=== PATIENT | female | born 1990 | race Hispanic/Latino ===

== ENCOUNTER 2019-10-14 20:28 | Emergency (ER) | payer OTHER ==
[~2019-10-14] VITALS: Ht 157.5 cm; Wt 98.4 kg
[2019-10-14] MEDS ORDERED: CLONIDINE HCL 0.1 MG TAB PO ONE (21:00)
--- NOTE | 2019-10-14 22:29 | Diagnostic Imaging Report ---
EXAMINATION: CXR 2 VIEW - HOPD INDICATION: Left chest pain, fever COMPARISON: None FINDINGS: TUBES and LINES: None. LUNGS: Lungs are well inflated. Lungs are clear. There is no evidence of pneumonia or pulmonary edema. PLEURA: No pleural effusion or pneumothorax. HEART AND MEDIASTINUM: The cardiomediastinal silhouette is unremarkable. BONES AND SOFT TISSUES: No acute osseous lesion. Soft tissues are unremarkable. UPPER ABDOMEN: No free air under the diaphragm. IMPRESSION: No acute thoracic radiographic abnormality. Signed by: Tristan Recio DO on 10/14/2019 10:26 PM
--- OUTSIDE RECORDS SUMMARY | 2019-10-21 11:55 | XMS REPORT ---
Author [facility] Address Unknown Phone Unavailable Care Team Providers Care Equipment Technician Name Role Phone Jarvis BARNES Unavailable Unavailable Payers Payer Name Policy Type Policy Number Effective Date Expiration Date Problems This patient has no known problems. Allergies, Adverse Reactions, Alerts Allergy Name Allergy Type Status Severity Reaction(s) Onset Date Inactive Date Treating Clinician Comments No Known Allergies DA Active U 2019-03-27 00:00:00 No Known Allergies DA Active U 2016-10-11 00:00:00 Medications This patient has no known medications. Results Test Description Test Time Test Comments Text Results Atomic Results Result Comments CXR 2 VIEW - [facility] 2019-10-14 22:25:00 [place] [address] Patient Name: TIFF GUNTER MR #: [id number] : 1990 Age/Sex: 29/F Req #: [id number] Adm Physician: Ordered by: ABEBA BARNES MD Report #: [id number] Location: [facility] Room/Bed: Procedure: [id number] HOPD/CXR 2 VIEW - HOPD Exam Date: 10/14/19 Exam Time: 2125 REPORT STATUS: Signed EXAMINATION: CXR 2 VIEW - HOPD INDICATION: Left chest pain, fever COMPARISON: None FINDINGS: TUBES and LINES: None. LUNGS: Lungs are well inflated. Lungs are clear. There is no evidence of pneumonia or pulmonary edema. PLEURA: No pleural effusion or pneumothorax. HEART AND MEDIASTINUM: The cardiomediastinal silhouette is unremarkable. BONES AND SOFT TISSUES: No acute osseous lesion. So ft tissues are unremarkable. UPPER ABDOMEN: No free air under the diaphragm. IMPRESSION: No acute thoracic radiographic abnormality. Signed by: Tristan Recio DO on 10/14/2019 10:26 PM Dictated By: TRISTAN RECIO DO 25 Transcribed By: ELIJAH on 10/14/192225 COPY TO: ABEBA BARNES MD - US TRANSVAGINAL NON OB 2019-03-28 01:20:00 Name: TIFF GUNTER [facility] : 1990 Age/S: 28 / F [address] [place] [address] Blvd Unit #: [id number] Loc: [place] [address] Phys: Vasyl Villalba MD Acct: [id number] Dis Date: Status: REG ER PHONE #: [phone] Exam Date: 03/27/20198 FAX #: [phone] Reason: PCOS, INCREASED PAIN EXAMS: CPT CODE: [id number] [place] [id number] EXAM: US, US PELVIS COMPLETE: 03/28/2019, 0027 hours EXAM: US, US TRANSVAGINAL: 03/28/2019, 0027 hours History: Pelvic pain and discomfort. Comparison none Technique: Sonographic evaluation is performed of the pelvis via transabdominal and transvaginal approach using grayscale, color flow and Doppler imaging as appropriate FINDINGS: Transabdominal pelvic ultrasound: Uterus is anteverted. Uterus measures 7.1 x 4.1 x 4.9 cm. Endometrial stripe is 1.6 cm. Right ovary measures 3.2 x 2.9 x 3.0 cm. Left ovary measures 4.6 x 2.2 x 2.8 cm. Normal flow is noted to the both ovaries. For better visualization of endometrium and adnexa, endovaginal pelvic ultrasound is performed. Endovaginal pelvic ultrasound: Uterus is anteverted. Uterus measures 7.9 x 3.9 x 5.3 cm. Endometrial stripe is heterogenous and thickened at 1.4 cm. Possible trace cystic foci in the endometrium. Uterus is unremarkable for echotexture. Right ovary: 3.7 x 1.8 x 3.0 Left ovary: 4.0 x 2.8 x 2.2 cm. Multiple small follicles are noted in the both ovaries, predominantly arranged in periventricular region. Findings may suggest PCOS in appropriate clinical setting. Normal flow is noted to the both ovaries. Trace fluid seen in left adnexa If indicated, follow-up sonogram or MRI can be obtained for complete assessment IMPRESSION: 1. Multiple small follicles in the periphery of both ovaries with appearance suggesting PCOS. Please correlate. PAGE 1 Signed Report (CONTINUED) Name: LOPEZ GUNTERMoris Subramanian [facility] : 1990 Age/S: 28 / F [address] [place] [address] Unit #: [id number] Loc: [place] [address] Phys: Vasyl Villalba MD Acct: [id number] Dis Date: Status: REG ER PHONE #: [phone] Exam Date: 03/27/201947 FAX #: [phone] Reason: PCOS, INCREASED PAIN EXAMS: CPT CODE: [id number] [place] [address] <Continued> 2. Slightly thickened and heterogenous endometrium. Possible trace cystic foci in the endometrium. 3. Trace free fluid in left adnexa. SL:FORD at 0120 Reported and signed by: Pablito Guan M.D. CC: Vasyl Villalba MD Technologist: Nadja Malik RDMS(Moris) Trnscb Date/Time: 03/28/2019 (0120) [email or web address] Orig Print D/T: S: 03/28/2019 (0123) Probe: [id number] PAGE 2 Signed Report - US PELVIS COMPLETE 2019-03-28 01:20:00 Name: TIFF GUNTER [facility] [place] : 1990 Age/S: 28 / F [address] [place] [address] Blvd Unit #: [id number] Loc: [place] [address] Phys: Trista Tiwari Acct: [id number] Dis Date: Status: REG ER PHONE #: [phone] Exam Date: 03/27/201947 FAX #: [phone] Reason: PCOS, increased pain EXAMS: CPT CODE: [id number] US PELVIS COMPLETE [id number] EXAM: US, US PELVIS COMPLETE: 03/28/2019, 0027 hours EXAM: US, US TRANSVAGINAL: 03/28/2019, 0027 hours History: Pelvic pain and discomfort. Comparison none Technique: Sonographic evaluation is performed of the pelvis via transabdominal and transvaginal approach using grayscale, color flow and Doppler imaging as appropriate FINDINGS: Transabdominal pelvic ultrasound: Uterus is anteverted. Uterus measures 7.1 x 4.1 x 4.9 cm. Endometrial stripe is 1.6 cm. Right ovary measures 3.2 x 2.9 x 3.0 cm. Left ovary measures 4.6 x 2.2 x 2.8 cm. Normal flow is noted to the both ovaries. For better visualization of endometrium and adnexa, endovaginal pelvic ultrasound is performed. Endovaginal pelvic ultrasound: Uterus is anteverted. Uterus measures 7.9 x 3.9 x 5.3 cm. Endometrial stripe is heterogenous and thickened at 1.4 cm. Possible trace cystic foci in the endometrium. Uterus is unremarkable for echotexture. Right ovary: 3.7 x 1.8 x 3.0 Left ovary: 4.0 x 2.8 x 2.2 cm. Multiple small follicles are noted in the both ovaries, predominantly arranged in periventricular region. Findings may suggest PCOS in appropriate clinical setting. Normal flow is noted to the both ovaries. Trace fluid seen in left adnexa If indicated, follow-up sonogram or MRI can be obtained for complete assessment IMPRESSION: 1. Multiple small follicles in the periphery of both ovaries with appearance suggesting PCOS. Please correlate. PAGE 1 Signed Report (CONTINUED) Name: TIFF GUNTER [facility] [place] : 1990 Age/S: 28 / F [address] [place], [place] [address]vd Unit #: [id number] Loc: [place] [address] Phys: Trista Twiari Acct: [id number] Dis Date: Status: REG ER PHONE #: [phone] Exam Date: 03/27/2019 004 FAX #: [phone] Reason: PCOS, increased pain EXAMS: CPT CODE: [id number] US PELVIS COMPLETE 77864 <Continued> 2. Slightly thickened and heterogenous endometrium. Possible trace cystic foci in the endometrium. 3. Trace free fluid in left adnexa. SL:JSGURMEETH at 0120 Reported and signed by: Pablito Guan M.D. CC: Trista SINGER; Vasyl Villalba MD Technologist: Nadja Malik RDMS(Moris) Trnscb Date/Time: 03/28/2019 (0120) [email or web address] Orig Print D/T: S: 03/28/2019 (0123) Probe: PAGE 2 Signed Report URINALYSIS COMPLETE 2019-03-28 00:26:00 UA COLOR (test code=COLU) YELLOW YEL/STRAW UA APPEARANCE (test code=APPU) SL CLOUDY CLEAR UA GLUCOSE DIPSTICK (test code=DGLUU) NEGATIVE NEGATIVE UA BILIRUBIN DIPSTICK (test code=BILU) NEGATIVE NEGATIVE UA KETONE DIPSTICK (test code=KETU) NEGATIVE NEGATIVE UA SPECIFIC GRAVITY (test code=SGU) 1.030 1.005-1.030 UA BLOOD DIPSTICK (test code=CLARY) 3+ NEGATIVE UA PH DIPSTICK (test code=THOMAS) 6.0 5.0-7.0 UA PROTEIN DIPSTICK (test code=PROU) 1+ NEGATIVE UA UROBILINIOGEN DIPSTICK (test code=URO) 0.2 mg/dL 0.2-1.0 UA NITRITE DIPSTICK (test code=CAROLIN) NEGATIVE NEGATIVE UA LEUKOCYTE ESTERASE DIPSTICK (test code=LEUU) TRACE NEGATIVE UA WBC (test code=WBCU) 10-20 WBC/HPF 0-3 UA RBC (test code=RBCU) >50 RBC/HPF 0-3 UA BACTERIA (test code=BACU) TRACE /HPF NONE SEEN UA SQUAMOUS CELLS (test code=SQU) 6-10 /HPF NONE SEEN UA MUCUS (test code=MUCU) 2+ /LPF NONE SEEN UR HCG [id number] 00:23:00* Test Item Value Reference Range Comments UR HCG QUAL (test code=HCGQLU) NEGATIVE NEGATIVE
== END 2019-10-14 21:59 | disposition home or self-care (01) ==
LOC: FSED 20:28
DX: R50.9 Fever, unspecified (principal); R05 Cough; J20.8 Acute bronchitis due to other specified organisms; B34.9 Viral infection, unspecified
CPT/HCPCS: 71046; 80053; 81003; 81025; 83518; 85025; 87400; 99283